=== PATIENT | male | born 1955 | race Caucasian/White ===

== ENCOUNTER 2023-10-20 20:09 | Emergency (ER) | payer OTHER, SELFPAY ==
[2023-10-20] VITALS (17 sets, daily range): BP systolic 134–162; BP diastolic 81–96; PULSE 60–105; RESP 16–18; TEMP 36.7; O2SAT 89–100
--- NOTE | 2023-10-20 20:49 | ED.GENADULT ---
HPI - General Adult General Chief complaint: Unspecified Complaint, Adult Stated complaint: shortness of breath; weakness Time Seen by Provider: 10/20/23 20:49 History of Present Illness HPI narrative: pt thinks he had food poisoning. difficulty in pooping, nausea and vomiting. Son is worried pt is having a heart attack. No complaint of chest pain. food was eaten around 3pm today. 68-year-old man presenting to the emergency department with primary complaint of nausea. Was experiencing marked degree of constipation and then about 3 hours ago finally had a very large bowel movement as described by spouse. Is in since been having copious diarrhea and then nausea and vomiting. Not having chest pain. Not short of breath. If he bends over he is feeling dizzy which clarified is lightheadedness. No fever. Not so much abdominal pain still some cramping. The big issue is this nausea. Does not have known cardiac disease. No fever. No rashes. Nausea in general would be extremely atypical; this is part of the concern. Has also been chilled. Related Data Home Medications Medication Instructions Recorded Confirmed No Known Home Medications 10/20/23 10/20/23 Allergies Allergy/AdvReac Type Severity Reaction Status Date / Time No Known Drug Allergies Allergy Verified 10/20/23 20:25 Review of Systems Status of ROS: Reports: 6 or more systems reviewed and unremarkable except as noted in History and below Exam Narrative: Exam Narrative: Pleasant. Increasingly uncomfortable with then overwhelming nausea as I had just finished palpating his abdomen begins vomiting aggressively. Skin is warm and dry. Oropharynx is moist. Some dental decay evident. Extremities are well perfused without edema. Abdomen with normoactive bowel sounds is soft and appears to be nontender. Heart is tachycardic in a regular rhythm. Lungs are clear. Const: Vital Signs, click to edit/add: Vital Signs - 24 hr 10/20/23 20:22 Temperature 98.0 F Pulse Rate [Left P ulse Oximeter] 105 H Respiratory Rate 18 Blood Pressure [Ri ght Upper Arm] 134/96 H Pulse Oximetry 100 Oxygen Delivery Me thod Room Air Documenting provider has reviewed patient's vital signs: yes Course Vital Signs Vital signs: Initial Vital Signs Pulse Rate 93 10/20/23 20:20 Respiratory Rate 16 10/20/23 20:20 Blood Pressure 160/86 H 10/20/23 20:20 Blood Pressure Mean 110 H 10/20/23 20:20 Pulse Oximetry 99 10/20/23 20:20 Vital Signs Pulse Rate 93 10/20/23 20:20 Respiratory Rate 16 10/20/23 20:20 Blood Pressure 160/86 H 10/20/23 20:20 Pulse Oximetry 99 10/20/23 20:20 Temperature 98.0 F 10/20/23 20:22 Pulse Rate 80 10/21/23 01:06 Respiratory Rate 16 10/20/23 20:30 Blood Pressure 150/87 H 10/20/23 23:32 Pulse Oximetry 98 10/21/23 01:06 Oxygen Delivery Method Room Air 10/20/23 21:30 Medications Administered Medications: Discontinued Medications Generic Name Dose Route Start Last Admin Trade Name Freq PRN Reason Stop Dose Admin Sodium Chloride 1,000 mls @ 1,000 mls/hr 10/20/23 20:54 10/20/23 22:20 0.9 % Sodium Chloride 1000 Ml IV 10/20/23 21:53 Infused .Q1H ONE Infusion Metoclopramide HCl 10 mg/ 102 mls @ 306 mls/hr 10/20/23 21:28 10/20/23 22:25 Sodium Chloride IVPB 10/20/23 21:29 Infused ONCE ONE Infusion Lactated Ringer's 1,000 mls @ 1,000 mls/hr 10/20/23 21:46 10/20/23 23:36 Lactated Ringers 1000 Ml IV 10/20/23 22:45 Infused .Q1H ONE Infusion Ondansetron HCl 4 mg 10/20/23 20:54 10/20/23 21:20 Ondansetron 2 Mg/Ml Inj IVP 10/20/23 20:55 4 mg ONCE ONE Administration Medical Decision Making MDM Narrative Medical decision making narrative: I would actually have some concerns about acute gastrointestinal process might be driving possible septic situation. May simply be a viral/bug. Will evaluate also for ischemic cardiovascular event. I am informed that initial point of care troponin is negative. Will do basic abdominal x-ray looking at bowel pattern for evidence of obstruction. Pending labs. IV hydration and Zofran. Abdominal x-ray by my read with unremarkable bowel pattern. No other acute findings. I felt there was still excessive stool. Radiology less impressed. With soft abdomen and nontender less likely dangerous process or surgical situation. Labs are notable for elevated lactate at 3.6. He does receive L of normal saline. Blood cultures were also collected. White count is rather elevated at a little over 20,000. With return of nausea is given Reglan. Also initiated on a L of lactated Ringer's. Recheck of lactate is improved to 2.5. Repeat troponins are negative. Blood pressures remained a little elevated during time in the emergency department. I think less likely septic; the blood cultures are pending. During time in the emergency department with treatment as above is clearly improved and relieved. Isolated neutrophilia. Repeat abdominal exam still soft and not particularly tender. I do not think prompts further investigation at this time. See patient discharge plan Lab Data Lab results reviewed: Yes I reviewed the patient's lab results Labs: Lab Results 10/20/23 10/20/23 10/20/23 Range/Units 20:16 20:45 23:47 WBC 20.23 H (4.50-11.00) K/uL RBC 5.52 (4.30-5.90) m/uL Hgb 16.5 (13.5-17.5) gm/dL Hct 48.3 (37.0-53.0) % MCV 88 (80-100) fL MCH 30 (26-34) pg MCHC 34 (32-36) gm/dL RDW Coeff of Lynda 12.5 (11.5-15.5) % Plt Count 316 (140-440) K/uL Neut % (Auto) 90.5 H (42.0-72.0) % Lymph % (Auto) 5.7 L (20-44) % [place] % (Auto) 3.5 (0.0-11.0) % Eos % (Auto) 0.0 (0.0-7.0) % Baso % (Auto) 0.1 (0.0-3.0) % Neut # (Auto) 18.30 H (1.7-7.0) K/uL Lymph # (Auto) 1.20 (0.90-2.90) K/uL [place] # (Auto) 0.70 (0.00-0.90) K/UL Eos # (Auto) 0.00 (0.00-0.50) K/uL Baso # (Auto) 0.00 (0.00-0.30) K/uL Abs Immat Gran (auto) 0.00 (0.00-0.30) K/uL Imm/Tot Granulo (auto) 0.2 % Sodium 137 (135-149) mmol/L Potassium 4.5 (3.6-5.1) mmol/L Chloride 103 (96-114) mmol/L Carbon Dioxide 17 L (20-32) mmol/L Anion Gap 17 H (7-15) mEq/L BUN 21 (7-30) mg/dL Creatinine 0.8 (0.5-1.5) mg/dL Estimated GFR 98 ml/min Glucose 139 H (60-115) mg/dL Lactate 3.6 H (0.5-1.9) mmol/L Calcium 9.4 (8.4-10.6) mg/dL Total Bilirubin 1.3 (0.1-1.5) mg/dL Direct Bilirubin 0.3 (0.0-0.5) mg/dL AST 35 (12-35) U/L ALT 40 (4-50) U/L Alkaline Phosphatase 64 (40-150) U/L Troponin I 0.02 (0.01-0.04) ng/mL C-Reactive Protein 0.6 (0.5-1.0) mg/dL NT-Pro-B Natriuret Pep 64 pg/mL Total Protein 8.0 (6.0-8.3) g/dL Albumin 4.7 (3.3-5.0) g/dL SARS-CoV-2 (PCR) Negative SARS-CoV-2 (Negative) Influenza Type A (PCR) Negative PCR FLU A (Negative) Influenza Type B (PCR) Negative PCR FLU B (Negative) RSV (PCR) Negative PCR RSV (Negative) POC Troponin I 0.01 0.00 L (0.01-0.04) ng/ml 10/21/23 Range/Units 00:04 WBC (4.50-11.00) K/uL RBC (4.30-5.90) m/uL Hgb (13.5-17.5) gm/dL Hct (37.0-53.0) % MCV (80-100) fL MCH (26-34) pg MCHC (32-36) gm/dL RDW Coeff of Lynda (11.5-15.5) % Plt Count (140-440) K/uL Neut % (Auto) (42.0-72.0) % Lymph % (Auto) (20-44) % [place] % (Auto) (0.0-11.0) % Eos % (Auto) (0.0-7.0) % Baso % (Auto) (0.0-3.0) % Neut # (Auto) (1.7-7.0) K/uL Lymph # (Auto) (0.90-2.90) K/uL [place] # (Auto) (0.00-0.90) K/UL Eos # (Auto) (0.00-0.50) K/uL Baso # (Auto) (0.00-0.30) K/uL Abs Immat Gran (auto) (0.00-0.30) K/uL Imm/Tot Granulo (auto) % Sodium (135-149) mmol/L Potassium (3.6-5.1) mmol/L Chloride (96-114) mmol/L Carbon Dioxide (20-32) mmol/L Anion Gap (7-15) mEq/L BUN (7-30) mg/dL Creatinine (0.5-1.5) mg/dL Estimated GFR ml/min Glucose (60-115) mg/dL Lactate 2.5 H (0.5-1.9) mmol/L Calcium (8.4-10.6) mg/dL Total Bilirubin (0.1-1.5) mg/dL Direct Bilirubin (0.0-0.5) mg/dL AST (12-35) U/L ALT (4-50) U/L Alkaline Phosphatase (40-150) U/L Troponin I (0.01-0.04) ng/mL C-Reactive Protein (0.5-1.0) mg/dL NT-Pro-B Natriuret Pep pg/mL Total Protein (6.0-8.3) g/dL Albumin (3.3-5.0) g/dL SARS-CoV-2 (PCR) (Negative) Influenza Type A (PCR) (Negative) Influenza Type B (PCR) (Negative) RSV (PCR) (Negative) POC Troponin I (0.01-0.04) ng/ml ECG Data Attestation: I personally reviewed and interpreted this ECG as follows: (Normal sinus rhythm. Rate of 86. Baseline irritability. No acute ischemic changes appreciated) Discharge Plan Discharge Clinical Impression: Gastroenteritis, Dehydration, Acidosis, lactic Patient Disposition: Home w/ Parent or Adult Condition: Improved Additional Instructions: Focus on hydration with slow advance of diet over the next 24-36 hours. Popsicles and Jell-O count as fluid. Otherwise diluted juice, soup broths. Then rice, crackers, toast. Consider regulating your stools with addition of MiraLax equivalent into your liquids over the next 1-2 weeks. This would be somewhere between 1-3 dosings per day. Adjust to stool consistency. Blood cultures will be pending here. Return otherwise for intractable vomiting or diarrhea, increasing and persistent abdominal pain, measured and escalating fever. Zofran for nausea from [facility]. Prescriptions: No Action No Known Home Medications Follow Up/Referrals: Provider,Not a Local [Primary Care Provider] - Stand Alone Forms: [email or web address] Info Instructions
--- NOTE | 2023-10-20 20:54 | CRLHL7_ITS ---
For Patients: As a result of the Century Cures Act, medical imaging exams and procedure reports are released immediately into your electronic medical record. You may view this report before your referring provider. If you have questions, please contact your health care provider. Indication: Abdominal cramping and vomiting. Technique: Abdomen 2 view. Comparison: None. Findings/Impression: Non-obstructive bowel gas pattern where visualized. No free air. No abnormal abdominal calcifications. Osseous structures are unremarkable for age. Dictated by Kwabena Diamond MD @ 10/20/2023 10:58:16 PM (Electronically Signed)
[2023-10-20 21:02] LABS: Lactate* 3.6 mmol/L (0.5-1.9)
[2023-10-20 21:03] LABS: Basophils Percent Auto 0.1 % (0.0-3.0); Hematocrit 48.3 % (37.0-53.0); Hemoglobin* 16.5 gm/dL (13.5-17.5); Immature Granulocytes Pct Auto 0.2 %; Lymphocytes Percent Auto 5.7 % (20-44); Mean Corpuscular HGB Conc 34 gm/dL (32-36); Mean Corpuscular Hemoglobin 30 pg (26-34); Mean Corpuscular Volume 88 fL (80-100); Monocytes Percent Auto 3.5 % (0.0-11.0); Neutrophils Percent Auto 90.5 % (42.0-72.0); Platelet Count* 316 K/uL (140-440); RDW Coefficient of Variation % 12.5 % (11.5-15.5); Red Blood Count 5.52 m/uL (4.30-5.90); White Blood Count* 20.23 K/uL (4.50-11.00)
[2023-10-20 21:04] LABS: Slide Review Reflex No
[2023-10-20 21:12] LABS: PCR FLU A Negative PCR FLU A (Negative); PCR FLU B Negative PCR FLU B (Negative); PCR RSV Negative PCR RSV (Negative)
[2023-10-20] MEDS: 0.9 % SODIUM CHLORIDE 1000 ml 1,000 ML IV (21:20)
[2023-10-20] MEDS: ONDANSETRON 2 MG/ML inj 4 MG IVP (21:20)
[2023-10-20 21:24] LABS: SARS PCR* Negative SARS-CoV-2 (Negative)
[2023-10-20 21:31] LABS: Albumin* 4.7 g/dL (3.3-5.0); Chloride* 103 mmol/L (96-114); Sodium* 137 mmol/L (135-149)
[2023-10-20 21:32] LABS: Potassium* 4.5 mmol/L (3.6-5.1)
[2023-10-20 21:34] LABS: Alkaline Phosphatase* 64 U/L (40-150); Anion Gap 17 mEq/L (7-15); Aspartate Amino Transferase* 35 U/L (12-35); Bilirubin Direct* 0.3 mg/dL (0.0-0.5); Bilirubin Total* 1.3 mg/dL (0.1-1.5); Carbon Dioxide* 17 mmol/L (20-32); Creatinine* 0.8 mg/dL (0.5-1.5); Estimated Glomerular Filt Rate 98 ml/min
[2023-10-20 21:35] LABS: Alanine Aminotransferase* 40 U/L (4-50); Blood Urea Nitrogen* 21 mg/dL (7-30); Calcium* 9.4 mg/dL (8.4-10.6); Glucose* 139 mg/dL (60-115)
[2023-10-20 21:37] LABS: C Reactive Protein* 0.6 mg/dL (0.5-1.0)
[2023-10-20 21:46] LABS: Troponin I* 0.02 ng/mL (0.01-0.04)
[2023-10-20 21:52] LABS: Troponin, Point-of-Care* 0.01 ng/ml (0.01-0.04)
[2023-10-20] MEDS: METOCLOPRAMIDE HCL 10 MG in 0.9 % SODIUM CHLORIDE 100 ml 100 ML 306 MG IVPB (22:03)
[2023-10-20 22:28] LABS: NT Pro B Type NatriureticPept* 64 pg/mL
[2023-10-20] MEDS: LACTATED RINGERS 1000 ML 1,000 ML IV (22:32)
[2023-10-21] VITALS: PULSE 76; O2SAT 98
[2023-10-21 00:13] LABS: Lactate* 2.5 mmol/L (0.5-1.9)
[2023-10-21 00:15] VITALS: PULSE 80; O2SAT 97
[2023-10-21 00:30] VITALS: PULSE 80; O2SAT 95
[2023-10-21 01:05] VITALS: PULSE 78; O2SAT 98
[2023-10-21 01:06] VITALS: PULSE 80; O2SAT 98
== END 2023-10-21 01:46 | disposition home or self-care (01) ==
PROVIDERS: Emergency Provider Family Medicine
DX: K52.9 Noninfective gastroenteritis and colitis, unspecified (principal); E87.20 Acidosis, unspecified
CPT/HCPCS: 36415; 74019; 80048; 80076; 83605; 83880; 84484; 85025; 86140; 87040; 87631; 93005; 94761; 96365; 96375; 99284; J2405; J2765; J7030; J7120

== ENCOUNTER 2024-07-10 13:44 | Emergency (ER) | payer OTHER, SELFPAY ==
[2024-07-10 13:50] VITALS: BP 140/89; PULSE 72; RESP 18; TEMP 36.6; O2SAT 98; BMI 27.0
--- NOTE | 2024-07-10 16:16 | CRLHL7_ITS ---
For Patients: As a result of the Century Cures Act, medical imaging exams and procedure reports are released immediately into your electronic medical record. You may view this report before your referring provider. If you have questions, please contact your health care provider. INDICATION: MIDLINE LOW BACK PAIN, TRAUMA CT LUMBAR SPINE WITHOUT CONTRAST TECHNIQUE: Multidetector axial CT imaging was performed through the lumbar spine, without contrast. Sagittal and coronal reconstructions were generated. FINDINGS: No acute fractures are identified. Osseous alignment is within normal limits and no subluxation is seen. Moderate multilevel lumbar spondylosis is present. There is associated minimal encroachment on the spinal canal at L3-4 and L4-5 but no high-grade spinal stenosis is noted. Paravertebral soft tissues are unremarkable. IMPRESSION: 1. No fracture, subluxation, or other acute finding identified. 2. Moderate multilevel lumbar spondylosis. LATONIA SONI MD [facility] Please note that all CT scans at this facility use dose modulation, iterative reconstruction, and/or weight-based dosing when appropriate to reduce radiation dose to as low as reasonably achievable. Dictated by: Tashi Soni MD @ 07/10/2024 19:16:06 (Electronically Signed)
--- NOTE | 2024-07-10 16:56 | ED_ITS ---
HPI - Back Pain/Injury General Time Seen by Provider: 16:58 Date Seen: 07/10/24 Chief Complaint: Back Injury/Pain Stated Complaint: pulled back out, dizzy, nausea Time Seen by Provider: 07/10/24 16:56 Source: patient Mode of arrival: ambulatory Limitations: no limitations History of Present Illness HPI Narrative: 69-year-old male who presents today with back pain and lightheadedness. 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 Pain was improved today until he stretched and felt more pain again. A couple hours after that he developed lightheadedness, nausea. Has vomited. No diarrhea, did have some looser stools earlier but that has resolved. Complains of some lower abdominal pain and fullness. Denies chest pain, shortness of breath. Has chills but no fever. Has not taken anything for symptoms today. Related Data Home Medications ?Medication ?Instructions ?Recorded ?Confirmed No Known Home Medications 10/20/23 07/10/24 Allergies Allergy/AdvReac Type Severity Reaction Status Date / Time No Known Drug Allergies Allergy Verified 07/10/24 13:56 PFSH PFS Social History Smoking Status: Former smoker What tobacco products do you use: pipe Do you use any of these nicotine containing products: None How often do you have a drink containing alcohol: never AUDIT-C Alcohol total score: 0 Exam Const: Vital Signs, click to edit/add: Vital Signs - 24 hr 07/10/24 13:50 07/10/24 19:08 Temperature 98 F 98.6 F Pulse Rate [Left P ulse Oximeter] 72 84 Respiratory Rate 18 16 Blood Pressure [Le ft Upper Arm] 140/89 H 163/93 H Pulse Oximetry 98 96 Oxygen Delivery Me thod Room Air Room Air Course Course ED Course: Patient seen and examined, presents today with low back pain starting yesterday after picking up his dog, that is improving and seems more musculoskeletal. However he has developed nausea vomiting today as well as some low abdominal pain. No chest pain or shortness of breath. No fever, no urinary symptoms. On exam here patient's vital is stable, vomiting just prior to my arrival. Heart is regular, mild diffuse lower abdominal tenderness. Concern for possible intra-abdominal pathology including diverticulitis, colitis, or hemorrhage or hematoma. Labs ordered along with CT scan of the abdomen pelvis, CT of the lumbar spine. Toradol and Zofran ordered for pain. Reevaluation(s) Time of Reevaluation #1: 18:46 Reevaluation #1: Labs ordered independently interpreted by me with leukocytosis, mild anion gap acidosis, slightly elevated lactate at 2.5, negative troponin. CT scan of the abdomen and pelvis independently interpreted by me demonstrates enlarged of the prostate but no other acute infectious or inflammatory processes. Time of Reevaluation #2: 19:45 Reevaluation #2: Reviewed radiology interpretation CT scan of the lumbar spine, CT abdomen and pelvis, all negative for acute findings. Urinalysis interpreted by me with 4+ ketones but otherwise negative. Patient stable for discharge the medication for Zofran, also medication to help with pain. Lightheadedness is better after fluids here. Patient is agreeable for discharge. He does request nausea medicine for home. Declines pain medication. Review of chart shows patient has had leukocytosis without evidence for infection sepsis in the past, no findings for intra-abdominal infection, urinary infection today. Follow-up with primary care as needed Vital Signs Vital signs: Initial Vital Signs Temperature 98 F 07/10/24 13:50 Temperature Source Temporal Artery Scan 07/10/24 13:50 Pulse Rate 72 07/10/24 13:50 Pulse Rhythm Regular 07/10/24 13:50 Pulse Strength 3+ Normal 07/10/24 13:50 Respiratory Rate 18 07/10/24 13:50 Blood Pressure 140/89 H 07/10/24 13:50 Blood Pressure Mean 106 H 07/10/24 13:50 Blood Pressure Position Sitting 07/10/24 13:50 Pulse Oximetry 98 07/10/24 13:50 Oxygen Delivery Method Room Air 07/10/24 13:50 Vital Signs Temperature 98 F 07/10/24 13:50 Pulse Rate 72 07/10/24 13:50 Respiratory Rate 18 07/10/24 13:50 Blood Pressure 140/89 H 07/10/24 13:50 Pulse Oximetry 98 07/10/24 13:50 Oxygen Delivery Method Room Air 07/10/24 13:50 Temperature 98.6 F 07/10/24 19:08 Pulse Rate 84 07/10/24 19:08 Respiratory Rate 16 07/10/24 19:08 Blood Pressure 163/93 H 07/10/24 19:08 Pulse Oximetry 96 07/10/24 19:08 Oxygen Delivery Method Room Air 07/10/24 19:08 Medications Administered Medications: Generic Name Dose Route Start Last Admin Trade Name Freq PRN Reason Stop Dose Admin Sodium Chloride 1,000 mls @ 1,000 mls/hr 07/10/24 19:00 07/10/24 19:11 0.9 % Sodium Chloride 1000 Ml IV 07/10/24 19:59 Infused .Q1H JOJO Infusion Discontinued Medications Generic Name Dose Route Start Last Admin Trade Name Freq PRN Reason Stop Dose Admin Ketorolac Tromethamine 15 mg 07/10/24 17:07 07/10/24 17:33 Ketorolac 15 Mg/Ml Inj IVP 07/10/24 17:08 15 mg ONCE ONE Administration MDM - Back Pain/Injury Lab Data Labs: Lab Results 07/10/24 07/10/24 Range/Units 17:20 19:15 WBC 14.20 H (4.50-11.00) K/uL RBC 5.60 (4.30-5.90) m/uL Hgb 16.2 (13.5-17.5) gm/dL Hct 48.1 (37.0-53.0) % MCV 86 (80-100) fL MCH 29 (26-34) pg MCHC 34 (32-36) gm/dL RDW Coeff of Lynda 13.4 (11.5-15.5) % Plt Count 377 (140-440) K/uL Neut % (Auto) 92.4 H (42.0-72.0) % Lymph % (Auto) 5.7 L (20-44) % [place] % (Auto) 1.6 (0.0-11.0) % Eos % (Auto) 0.0 (0.0-7.0) % Baso % (Auto) 0.1 (0.0-3.0) % Neut # (Auto) 13.10 H (1.7-7.0) K/uL Lymph # (Auto) 0.80 L (0.90-2.90) K/uL [place] # (Auto) 0.20 (0.00-0.90) K/UL Eos # (Auto) 0.00 (0.00-0.50) K/uL Baso # (Auto) 0.00 (0.00-0.30) K/uL Abs Immat Gran (auto) 0.00 (0.00-0.30) K/uL Imm/Tot Granulo (auto) 0.2 % Sodium 137 (135-149) mmol/L Potassium 3.9 (3.6-5.1) mmol/L Chloride 105 (96-114) mmol/L Carbon Dioxide 16 L (20-32) mmol/L Anion Gap 16 H (7-15) mEq/L BUN 16 (7-30) mg/dL Creatinine 0.8 (0.5-1.5) mg/dL Estimated Creat Clear 83.34 Estimated GFR 97 ml/min Glucose 141 H (60-115) mg/dL Calcium 9.7 (8.4-10.6) mg/dL Magnesium 2.2 (1.5-2.6) mg/dL Urine Color Yellow (Yellow) Urine Appearance Clear (Clear) Urine pH 6.0 (5.0-8.5) Ur Specific [place] 1.010 (1.000-1.030) Urine Protein Negative (Negative) Urine Glucose (UA) Negative (Negative) Urine Ketones 4+ A (Negative) Urine Blood Negative (Negative) Urine Nitrite Negative (Negative) Urine Bilirubin Negative (Negative) Urine Urobilinogen 0.2 (0.2-1.0) Ur Leukocyte Esterase Negative (Negative) Urine RBC 0-2 (0-2) Urine WBC 0-2 (0-5) Ur Squamous Epith Cells None (None-Few) Urine Bacteria None (None) Discharge Plan Discharge Clinical Impression: Strain of lumbar region, Near syncope, Nausea & vomiting Patient Disposition: Home, Self-Care Condition: Improved Instructions: Low Back Strain (ED), Acute Nausea and Vomiting (ED) Activity Level: Activity as Tolerated Discharge Diet: Regular Prescriptions: No Action No Known Home Medications Follow Up/Referrals: Provider,Not a Local [Primary Care Provider] - Stand Alone Forms: [facility] Info Instructions
--- NOTE | 2024-07-10 17:06 | CRLHL7_ITS ---
For Patients: As a result of the Century Cures Act, medical imaging exams and procedure reports are released immediately into your electronic medical record. You may view this report before your referring provider. If you have questions, please contact your health care provider. INDICATION: Lower abdominal pain and flank pain. Trauma. CT ABDOMEN AND PELVIS WITH CONTRAST TECHNIQUE: Multidetector CT imaging was performed through the abdomen and pelvis following intravenous contrast administration using 95 mL Isovue 370. Coronal and sagittal reconstructions were generated. COMPARISON: None. FINDINGS: Lower chest: Lung bases are clear. Liver: Within normal limits. Gallbladder and bile ducts: No gallbladder wall thickening or calcified gallstones. No biliary dilation identified. Pancreas: Unremarkable. Spleen: Normal. Adrenals: No nodules or masses. Kidneys, ureters, and urinary bladder: No evidence of acute traumatic renal injury. No renal masses or hydronephrosis. No bladder mass or definite wall thickening. Gastrointestinal tract: Normal caliber bowel without wall thickening or obstruction. The appendix is normal. A few colon diverticula, without evidence of diverticulitis. Abdominal wall: Small fat-containing left inguinal hernia. Vascular structures: Normal caliber abdominal aorta with mild atherosclerotic calcifications. Peritoneum: No free air, abscess, or significant free fluid. Lymph nodes: No pathologically enlarged nodes identified. Reproductive organs: Moderate prostatomegaly. Bones: Moderate multilevel lumbar spondylosis. No acute fracture identified. IMPRESSION: 1. No acute abnormality identified. No fractures are seen. No cause for the patient`s symptoms is demonstrated. 2. Nonacute findings as detailed above. LATONIA SONI MD [facility] [employer] [employer] Dictated by Tashi Soni MD @ 07/10/2024 7:12:10 PM Please note that all CT scans at this facility use dose modulation, iterative reconstruction, and/or weight-based dosing when appropriate to reduce radiation dose to as low as reasonably achievable. Dictated by: Tashi Soni MD @ 07/10/2024 19:12:53 (Electronically Signed)
[2024-07-10] MEDS: KETOROLAC 15 MG/ML inj IVP (17:33)
[2024-07-10 17:50] LABS: Basophils Percent Auto 0.1 % (0.0-3.0); Hematocrit 48.1 % (37.0-53.0); Hemoglobin* 16.2 gm/dL (13.5-17.5); Immature Granulocytes Pct Auto 0.2 %; Lymphocytes Percent Auto 5.7 % (20-44); Mean Corpuscular HGB Conc 34 gm/dL (32-36); Mean Corpuscular Hemoglobin 29 pg (26-34); Mean Corpuscular Volume 86 fL (80-100); Monocytes Percent Auto 1.6 % (0.0-11.0); Neutrophils Percent Auto 92.4 % (42.0-72.0); Platelet Count* 377 K/uL (140-440); RDW Coefficient of Variation % 13.4 % (11.5-15.5)
[2024-07-10 18:09] LABS: Slide Review Reflex No
[2024-07-10 18:21] LABS: Chloride* 105 mmol/L (96-114); Potassium* 3.9 mmol/L (3.6-5.1); Sodium* 137 mmol/L (135-149)
[2024-07-10 18:24] LABS: Anion Gap 16 mEq/L (7-15); Carbon Dioxide* 16 mmol/L (20-32); Creatinine* 0.8 mg/dL (0.5-1.5); Est. Creatinine Clearance* 83.34; Estimated Glomerular Filt Rate 97 ml/min
[2024-07-10 18:25] LABS: Blood Urea Nitrogen* 16 mg/dL (7-30); Calcium* 9.7 mg/dL (8.4-10.6); Glucose* 141 mg/dL (60-115); Magnesium* 2.2 mg/dL (1.5-2.6)
[2024-07-10] MEDS: 0.9 % SODIUM CHLORIDE 1000 ml 1,000 ML IV (19:06)
[2024-07-10 19:08] VITALS: BP 163/93; PULSE 84; RESP 16; TEMP 37; O2SAT 96
[2024-07-10 19:24] LABS: Appearance Urine Clear (Clear); Bilirubin Urine Negative (Negative); Blood Urine Negative (Negative); Color Urine Yellow (Yellow); Glucose Urine Negative (Negative); Ketones Urine 4+ (Negative); Leukocyte Esterase Urine Negative (Negative); Nitrite Urine Negative (Negative); Protein Urine Negative (Negative); Urobilinogen Urine 0.2 (0.2-1.0)
[2024-07-10 19:29] LABS: RBC Urine 0-2 (0-2); WBC Urine 0-2 (0-5)
[2024-07-10] MEDS: ONDANSETRON 2 MG/ML inj 4 MG IVP (20:04)
[2024-07-10 20:12] VITALS: BP 158/95; PULSE 67; RESP 14
== END 2024-07-10 20:13 | disposition home or self-care (01) ==
PROVIDERS: Emergency Provider Family Medicine
DX: S39.012A Strain of muscle, fascia and tendon of lower back, initial encounter (principal); R55 Syncope and collapse; R11.2 Nausea with vomiting, unspecified
CPT/HCPCS: 36415; 72131; 74177; 80048; 81001; 83735; 85025; 96374; 96375; 99284; 99285; J1885; J2405; J7030; Q9967